=== PATIENT | male | born 1990 | race Caucasian/White ===

== ENCOUNTER 2024-05-03 15:14 | Emergency (ER) | payer SELFPAY ==
[2024-05-03 15:37] VITALS: BP 133/70; PULSE 86; RESP 18; TEMP 36.9; O2SAT 97; BMI 25.7
--- NOTE | 2024-05-03 17:25 | W.ED.GENADLT ---
HPI - General Adult General: Chief complaint: General Medical Stated complaint: hieu siegel (detox) Time Seen by Provider: 05/03/24 16:41 Source: patient Mode of arrival: ambulatory Limitations: no limitations History of Present Illness: Patient is a 34-year-old male who presents the emergency department complaining of weakness onset today. States that he took his last dose of Suboxone 6 days ago, and due to monetary issues has not been able to obtain any more from [facility]. States he does have an appointment with Medicaid tomorrow for insurance purposes, and hopefully will get future prescriptions settled. However he states that his symptoms are getting too out of hand, as he notes he is weak, has no appetite, cannot sleep, is anxious, and is having back pain. States he has a history of back issues, and this is his primary complaint at this time. He is denying any dizziness, lightheadedness, chest pain, shortness of breath, seizure-like activity, or other symptoms. MD complaint: Withdrawal symptoms from Suboxone, last dose 6 days ago Associated symptoms: Deny chest pain, confusion, dyspnea, headache(s), nausea or vomiting Related Data Allergies Allergy/AdvReac Type Severity Reaction Status Date / Time azithromycin [From Zithromax] Allergy ADR-Anxiety Verified 05/03/24 15:40 Review of Systems General: Reports: 10 or more systems reviewed and unremarkable except in HPI and below Const: Reports: change in appetite and change in sleep pattern; Denies: fever(s) or chills Card: Denies: chest pain Resp: Denies: dyspnea GI: Denies: abdominal pain, nausea, vomiting or diarrhea Musc: Reports: back pain; Denies: neck pain Neuro: Reports: weakness in extremities; Denies: headache(s), numbness in extremities, dizziness, confusion, Slurred speech present or seizure-like activity Physical Exam Const: COMMON NORMALS: no acute distress, patient oriented x3, no limitations, healthy appearing and alert OTHER: Patient is calm and cooperative at this time, nontoxic-appearing HENMT: COMMON NORMALS: normocephalic, atraumatic and moist oral mucous membranes HEAD & SCALP: normocephalic and atraumatic Eye: COMMON NORMALS: Equal, round and reactive pupils present, EOMs intact bilaterally and conjunctivae normal CONJUNCTIVA: Yes conjunctivae normal PUPIL: Yes Equal, round and reactive pupils present Neck/C-Spine: COMMON NORMALS: full ROM and no meningeal signs Resp: COMMON NORMALS: normal respiratory effort, No use of accessory muscles and clear to auscultation bilaterally EFFORT & INSPECTION: Yes able to speak in complete sentences AUSCULTATION: clear to auscultation bilaterally Cardio: COMMON NORMALS: regular rate, regular rhythm, S1 normal heart sound present, S2 normal heart sound present, No gallops present (Cardio), No murmurs present (Cardio) and No rub (Cardio) RATE: regular rate RHYTHM: regular rhythm HEART SOUNDS: S1 normal heart sound present and S2 normal heart sound present GI: COMMON NORMALS: Normal to inspection, nondistended, normoactive bowel sounds present, Soft to palpation and non-tender PALPATION: Yes Soft to palpation Back/Pelvis: COMMON NORMALS: thoracic and lumbar spine normal to inspection OTHER: Pain with lumbar range of motion, specifically lateral rotation of the hips. No significant spinous process tenderness to palpation. Extremity: COMMON NORMALS: normal to inspection and full ROM Neuro: COMMON NORMALS: patient oriented x3, moves all extremities, no focal motor deficits and no sensory deficits noted SENSORIUM/ORIENTATION: Yes alert MENINGEAL SIGNS: Yes no meningeal signs Psych: COMMON NORMALS: mental status grossly normal, Normal thought process present, cooperative, normal affect, activity/motor behavior normal and denies hallucinations THOUGHT PROCESS: Normal thought process present Skin: COMMON NORMALS: no rashes or lesions noted GENERAL SKIN EXAM: no rashes or lesions noted Course Vital Signs: Vital signs: Vital Signs Temperature 98.4 F 05/03/24 15:37 Pulse Rate 86 05/03/24 15:37 Respiratory Rate 18 05/03/24 15:37 Blood Pressure 133/70 05/03/24 15:37 Pulse Oximetry 97 05/03/24 15:37 Oxygen Delivery Me thod Room Air 05/03/24 15:37 MDM - General Adult Medical Decision Making Patient presented reporting symptoms of withdrawal from Suboxone, his last dose had been 6 days prior. Lab work today was unremarkable. His back pain was much improved after Toradol, and was given 1 mg of Ativan and he is noted to be much less anxious and is himself reporting that he feels better. He does have an appointment with Medicaid tomorrow to discuss obtaining Suboxone for further treatment of opioid dependence, and will keep this as scheduled. He is instructed to return with any worsening of symptoms. Discussed this patient with Dr. Monzon. Lab Data 05/03/24 17:32 05/03/24 17:32 Laboratory Results WBC 9.81 10^3/uL (3.29-11.43) 05/03/24 17: RBC 4.96 10^6/uL (3.85-5.65) 05/03/24 17:32 Hgb 16.10 g/dL (11.27-16.99) 05/03/24 17:32 Hct 45.7 % (37-53) 05/03/24 17:32 MCV 92.1 fl (82-101) 05/03/24 17: MCH 32.5 pg (27-33) 05/03/24 17: MCHC 35.2 g/dL (30-55) 05/03/24 17: RDW 11.9 % (12.1-15.1) L 05/03/24 17: Plt Count 259 10^3/cmm (157-399) 05/03/24 17:32 MPV 9.4 fL (7.4-10.4) 05/03/24 17: Neut % (Auto) 69.3 % 05/03/24 17:32 Lymph % (Auto) 22.7 % 05/03/24 17:32 [place] % (Auto) 6.6 % 05/03/24 17: Eos % (Auto) 0.5 % 05/03/24 17: Baso % (Auto) 0.5 % 05/03/24 17: Neut # (Auto) 6.79 10^3/uL (1.8-7.7) 05/03/24 17:32 Lymph # (Auto) 2.2 10^3/uL (0.8-4.8) 05/03/24 17:32 [place] # (Auto) 0.7 10^3/uL (0.2-0.9) 05/03/24 17:32 Eos # (Auto) 0.1 10^3/uL (0.0-0.8) 05/03/24 17:32 Baso # (Auto) 0.1 10^3/uL (0.0-0.1) 05/03/24 17:32 Nucleated RBC % (auto) 0 % 05/03/24 17:32 Nucleated RBCs # 0.0 /100WBC 05/03/24 17:32 Sodium 140 mmol/L (136-145) 05/03/24 17:32 Potassium 4.3 mmol/L (3.5-5.1) 05/03/24 17:32 Chloride 105 mmol/L (98-107) 05/03/24 17:32 Carbon Dioxide 26 mmol/L (22-29) 05/03/24 17:32 Anion Gap 13.3 (5-19) 05/03/24 17:32 BUN 7 mg/dL (6-20) 05/03/24 17:32 Creatinine 0.8 mg/dL (0.7-1.2) 05/03/24 17:32 GFR Calculation 109.4 mL/min (90-130) 05/03/24 17:32 Glucose 93 mg/dL (65-115) 05/03/24 17:32 Calculated Osmolality 288 mOsm/kg (285-295) 05/03/24 17:32 Calcium 9.5 mg/dL (8.5-10.5) 05/03/24 17:32 Total Bilirubin 0.4 mg/dL (0.15-1.2) 05/03/24 17:32 AST 13 U/L (0-40) 05/03/24 17:32 ALT 15 U/L (0-41) 05/03/24 17:32 Alkaline Phosphatase 57 U/L (40-130) 05/03/24 17:32 Total Protein 7.7 g/dL (6.6-8.7) 05/03/24 17:32 Albumin 4.9 g/dL (3.5-5.2) 05/03/24 17:32 Globulin 2.8 g/dL (1.3-4.6) 05/03/24 17:32 No radiology studies performed this visit Discharge Plan Discharge Patient Disposition: Home Clinical Impression: Drug withdrawal Qualifiers: Substance type: opioid Qualified Code(s): F11.93 - Opioid use, unspecified with withdrawal Condition: Stable Discharge Orders: Discharge ED (Routine); Ordered 05/03/24 Ordered By: Skyler Mathew Discharge Diet: Usual diet Discharge Activity: Increase activity as tolerated Patient Instructions: Opioid Safety, Pain Management Activity Restrictions/Additional Instructions: Please keep appointment with Medicaid tomorrow to discuss further steps. Take Tylenol/ibuprofen at home for pain relief. Drink plenty of fluids. Please return if your condition worsens or you develop any new or concerning symptoms. Coding Level of Care Code ED Clinical Resource Nurse for Kimi Peterson
[2024-05-03] MEDS: ketorolac 60 mg/2 mL INJ IM (17:43)
[2024-05-03] MEDS: LORazepam 1 mg Tablet PO (17:43)
[2024-05-03 17:50] LABS: Basophils # 0.1 10^3/uL (0.0-0.1); Basophils % 0.5 %; Eosinophils # 0.1 10^3/uL (0.0-0.8); Eosinophils % 0.5 %; Hematocrit 45.7 % (37-53); Lymphocytes # 2.2 10^3/uL (0.8-4.8); Lymphocytes % 22.7 %; Mean Corpuscular HGB Conc 35.2 g/dL (30-55); Mean Corpuscular Hemoglobin 32.5 pg (27-33); Mean Corpuscular Volume 92.1 fl (82-101); Mean Platelet Volume 9.4 fL (7.4-10.4); Monocytes # 0.7 10^3/uL (0.2-0.9); Monocytes % 6.6 %; Neutrophils # 6.79 10^3/uL (1.8-7.7); Neutrophils % 69.3 %; Nucleated Red Blood Cells % 0 %; Platelet Count 259 10^3/cmm (157-399); Red Blood Count 4.96 10^6/uL (3.85-5.65); Red Cell Distribution Width 11.9 % (12.1-15.1); White Blood Count 9.81 10^3/uL (3.29-11.43)
[2024-05-03 18:12] LABS: Alanine Aminotransferase 15 U/L (0-41); Albumin Level 4.9 g/dL (3.5-5.2); Alkaline Phosphatase 57 U/L (40-130); Anion Gap 13.3 (5-19); Aspartate Amino Transferase 13 U/L (0-40); Blood Urea Nitrogen 7 mg/dL (6-20); Calcium 9.5 mg/dL (8.5-10.5); Carbon Dioxide 26 mmol/L (22-29); Chloride 105 mmol/L (98-107); Creatinine Clr Calc Pharmacy 142.1803; Globulin 2.8 g/dL (1.3-4.6); Glomerular Filtration Rate 109.4 mL/min (90-130); Glucose 93 mg/dL (65-115); Osmolality Calculated 288 mOsm/kg (285-295); Potassium 4.3 mmol/L (3.5-5.1); Sodium 140 mmol/L (136-145); Total Bilirubin 0.4 mg/dL (0.15-1.2); Total Protein 7.7 g/dL (6.6-8.7)
[2024-05-03 18:46] VITALS: BP 0000000/0; PULSE 78; RESP 16; O2SAT 97
== END 2024-05-03 18:47 | disposition home or self-care (01) ==
PROVIDERS: Physician Assistant; Emergency Provider Physician Assistant
DX: F11.93 Opioid use, unspecified with withdrawal (principal)
CPT/HCPCS: 36415; 80053; 85025; 96372; 99284; J1885